=== PATIENT | female | born 1990 | race Caucasian/White ===

== ENCOUNTER 2016-09-10 10:14 | Emergency (ER) | payer OTHER ==
[2016-09-10 10:36] VITALS: BP 106/55; PULSE 83; RESP 16; TEMP 97.6
--- NOTE | 2016-09-10 10:57 | ED ---
General Adult HPI - General Chief complaint: Skin/Abscess/Foreign Body Stated complaint: Needlestick-[facility] Time Seen by Provider: 09/10/16 10:48 Source: patient, RN notes reviewed Mode of arrival: ambulatory Limitations: no limitations - History of Present Illness Initial comments: Patient 26-year-old female who presents emergency room today with a chief complaint of a needlestick. 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 She states it did bleed. She states her tetanus is up-to-date. States hepatitis B physician up-to-date. States she does not believe that the patient has any known history of HIV or hepatitis. Patient does have a sample of blood from the patient. She denies any other complaints or symptoms at this time. Patient denies any recent fever, chills, shortness of breath, chest pain, back pain, abdominal pain, nausea or vomiting, numbness or tingling, dysuria or hematuria, constipation or diarrhea, headaches or visual changes, or any other complaints. - Related Data Home Medications Medication Instructions Recorded Confirmed No Known Home Medications [No 09/10/16 09/10/16 Known Home Medications] Allergies Allergy/AdvReac Type Severity Reaction Status Date / Time No Known Allergies Allergy Verified 09/10/16 10:36 Review of Systems ROS Statement: Those systems with pertinent positive or pertinent negative responses have been documented in the HPI. ROS Other: All systems not noted in ROS Statement are negative. Past Medical History Past Medical History: No Reported History Additional Past Medical History / Comment(s): The patient has had 3 pregnancies and 3 elective abortions History of Any Multi-Drug Resistant Organisms: None Reported Past Surgical History: No Surgical Hx Reported Additional Past Surgical History / Comment(s): Elective 3 Past Anesthesia/Blood Transfusion Reactions: No Reported Reaction Additional Past Anesthesia/Blood Transfusion Reaction / Comment(s): no transfusion hx. Past Psychological History: No Psychological Hx Reported Smoking Status: Never smoker Past Alcohol Use History: None Reported, Occasional Past Drug Use History: None Reported - Past Family History Father Family Medical History: Coronary Artery Disease (CAD) General Exam - General Exam Comments Initial Comments: General: The patient is awake and alert, in no distress, and does not appear acutely ill. Eye: Pupils are equal, round and reactive to light, extra-ocular movements are intact. No nystagmus. There is normal conjunctiva bilaterally. No signs of icterus. Ears, nose, mouth and throat: There are moist mucous membranes and no oral lesions. Neck: The neck is supple. Cardiovascular: There is a regular rate and rhythm. No murmur, rub or gallop is appreciated. Respiratory: Lungs are clear to auscultation, respirations are non-labored, breath sounds are equal. No wheezes, stridor, rales, or rhonchi. Musculoskeletal: Normal ROM, no tenderness. Strength 5/5. Sensation intact. Pulses equal bilaterally 2+. Neurological: A&O x 3. CN II-XII intact, There are no obvious motor or sensory deficits. Coordination appears grossly intact. Speech is normal. Skin: Skin is warm and dry and no rashes or lesions are noted. Psychiatric: Cooperative, appropriate mood & affect, normal judgment. Limitations: no limitations Course Vital Signs 09/10/16 10:33 Temperature 97.6 F Pulse Rate 83 Respiratory 16 Rate Blood Pressure 106/55 O2 Sat by Pulse 99 Oximetry Medical Decision Making - Medical Decision Making Patient's rapid HIV test done on source patient was negative. Results were discussed with patient. Patient advised to follow-up with [facility] for further testing. She states understanding and is in agreement. Disposition Clinical Impression: Needlestick injury accident Disposition: HOME SELF-CARE Condition: Good Instructions: Needle Stick Injuries (ED) Additional Instructions: Please follow-up with employee health for further testing. Please return to emergency room symptoms increase worsen or for any other concerns. Time of Disposition: 12:00
[2016-09-10 12:43] LABS: Hepatitis C Virus IgG Index 0.01
[2016-09-10 12:44] LABS: Hepatitis B Surface Antibody POSITIVE (Negative); Hepatitis C Virus IgG Ab Negative (Negative)
[2016-09-12 03:59] LABS: HIV-1/HIV-2 Ab Screen NONREAC (NON REAC)
== END 2016-09-10 12:08 | disposition home or self-care (01) ==
LOC: EC 10:14
DX: Z77.21 Contact with and (suspected) exposure to potentially hazardous body fluids (principal); W46.1XXA Contact with contaminated hypodermic needle, initial encounter; Y99.0 Civilian activity done for income or pay; Y92.59 Other trade areas as the place of occurrence of the external cause
CPT/HCPCS: 36415; 86701; 86704; 86706; 86803; 87340; 87389; 99283

== ENCOUNTER → 2016-09-25 | Outpatient (CLI) | payer OTHER ==
[2016-09-25 12:07] LABS: CH 31.5; CHCM 32.9; HCT 33.2 % (34.0-46.0); HDW 2.91; HGB 10.7 gm/dL (11.4-16.0); MCH 31.2 pg (25.0-35.0); MCHC 32.3 g/dL (31.0-37.0); MCV 96.5 fL (80.0-100.0); Mean Platelet Volume 8.1; RBC 3.44 m/uL (3.80-5.40); RDW 13.9 % (11.5-15.5); WBC 5.9 k/uL (3.8-10.6)
[2016-09-25 12:09] LABS: Non-African American GFR(MDRD) >60 (>60 ml/min/1.73 sqM)
[2016-09-25 12:41] LABS: Hepatitis B Surface Ag Index 0.07
--- NOTE | 2016-09-25 13:31 | US ---
EXAMINATION TYPE: US OB anatomy transabd DATE OF EXAM: 09/25/2016 1:00 PM COMPARISON: NONE HISTORY: Confirm dates TECHNIQUE: Transabdominal (TA) EXAM MEASUREMENTS: GESTATIONAL AGE / DATING Physician Established: not establsihed Dates by LMP: unknown Dates by First Scan: no prior exam Dates by Current Scan for: (24 weeks/4 days) EDC: 01/11/17 SURVEY IUP: Single PLACENTA: Posterior PREVIA: No previa BOY: 15.8 cm Normal CERVICAL LENGTH (transabdominal: norm > 3.0cm): 4.2 cm BIOMETRY PRESENTATION: Breech LIE: Oblique BPD: 6.0 cm 24 weeks / 4 days HC: 22.8 cm 24 weeks / 6 days AC: 19.8 cm 24 weeks / 4 days FL: 4.3 cm 24 weeks / 1 days ESTIMATED WEIGHT IN GRAMS: 687 grams ESTIMATED WEIGHT IN LBS/OZS: 1 lbs. 8 oz. HC/AC: 1.15 FL/AC: 22% HEART RATE: 134 bpm RHYTHM: Normal ANATOMY SEEN (within normal limits): * Lateral Vent (< 1 cm) 0.8cm * Cisterna Magna (< 1.1 cm) 0.3cm * Nuchal Fold (< 0.6 cm) 0.4cm * Cerebellum (varies with age) 2.2cm Choroid Plexus (bilateral) Midline Falx Cavus Septi Pellucidi Four Chamber Heart Outflow tracts: LVOT/RVOT Stomach Situs Nose / Lips Diaphragm Kidneys (bilateral) Bladder Cord Insert Three Vessel Cord Longitudinal Spine Transverse Spine Arms (bilateral) Legs (bilateral) TECHNOLOGIST IMPRESSION: Single viable IUP 24wks/4 days with NAVEED of 01/11/17 IMPRESSION: Chairez fetus present in a breech presentation with a gestational age of 24 weeks 4 days +/- 2 week s. Estimated date of confinement based on this examination is 01/11/2017.
== END | disposition home or self-care (01) ==
LOC: RADUSWWP 10:15
PROVIDERS: ATTEND Obstetrics & Gynecology
DX: O32.1XX0 Maternal care for breech presentation, not applicable or unspecified (principal); Z3A.24 24 weeks gestation of pregnancy
CPT/HCPCS: 36415; 76811; 82565; 82950; 85027; 86762; 86780; 86850; 86900; 86901; 87340

== ENCOUNTER → 2016-09-30 | Outpatient (CLI) | payer OTHER ==
[2016-09-30 11:41] LABS: Glucose 3 Hour, Gest 91 mg/dL
== END | disposition home or self-care (01) ==
LOC: LABWHC1 07:33
PROVIDERS: ATTEND Obstetrics & Gynecology
DX: O99.810 Abnormal glucose complicating pregnancy (principal); Z3A.00 Weeks of gestation of pregnancy not specified
CPT/HCPCS: 36415; 82951; 82952

== ENCOUNTER → 2016-12-16 | Outpatient (CLI) | payer OTHER ==
--- NOTE | 2016-12-16 11:10 | US ---
EXAMINATION TYPE: US OB anatomy transabd third trimester DATE OF EXAM: 12/16/2016 8:36 AM COMPARISON: US second trimester September 25, 2016. HISTORY: Large for Dates 036.63X0 TECHNIQUE: Transabdominal (TA) EXAM MEASUREMENTS: GESTATIONAL AGE / DATING Physician Established: (35 weeks/1 days) EDC: 01/19/17 Dates by LMP: Unknown Dates by First Scan: (36 weeks/2 days) EDC: 01/11/17 Dates by Current Scan for: (36 weeks/2 days) EDC: 01/19/17 SURVEY IUP: Single PLACENTA: Fundal/posterior PREVIA: No previa BOY: 14.1 cm CERVICAL LENGTH (transabdominal: norm > 3.0cm): 3.0 cm BIOMETRY PRESENTATION: Vertex LIE: Transverse lie with head maternal Left BPD: 8.5 cm 34 weeks / 2 days HC: 33.1 cm 37 weeks / 5 days AC: 32.8 cm 36 weeks / 5 days FL: 7.0 cm 36 weeks / 0 days ESTIMATED WEIGHT IN GRAMS: 2911 grams ESTIMATED WEIGHT IN LBS/OZS: 6 lbs.7 oz. WEIGHT PERCENTAGE BASED ON ESTABLISHED DATE: 80 % HC/AC: 1.0 FL/AC: 21. HEART RATE: 132 bpm RHYTHM: Normal ANATOMY SEEN (within normal limits): Four Chamber Heart Outflow tracts: LVOT/RVOT Stomach Situs Nose / Lips Diaphragm Kidneys (bilateral) Bladder Three Vessel Cord Longitudinal Spine Transverse Spine ANATOMY NOT SEEN: * Lateral Vent (< 1 cm) cm * Cisterna Magna (< 1.1 cm) cm * Nuchal Fold (< 0.6 cm) cm * Cerebellum (varies with age) cm Choroid Plexus (bilateral) Midline Falx Cavus Septi Pellucidi Arms (bilateral) Legs (bilateral) Cord Insert Single live intrauterine gestation is redemonstrated. Normal cephalad presentation to fetus is curren tly seen. There is no ultrasound evidence for placenta previa. Amniotic fluid index is within normal limits. Cervical length is borderline lower limits. biometry measurements are concordant and wi thin normal limits. Detailed anatomical survey is suboptimal due to advanced age. Some structur es are redemonstrated as apparent normal during real-time scanning and still images saved as noted ab ove. Other structures suboptimally evaluated appear within normal limits on second trimester ultrasou nd. IMPRESSION: As above.
== END | disposition home or self-care (01) ==
LOC: RADUSWWP 07:47
PROVIDERS: ATTEND Obstetrics & Gynecology
DX: O36.63X0 Maternal care for excessive fetal growth, third trimester, not applicable or unspecified (principal); Z3A.36 36 weeks gestation of pregnancy
CPT/HCPCS: 76811

== ENCOUNTER 2017-01-01 12:41 | Outpatient (CLI) | payer OTHER ==
[2017-01-01 13:43] VITALS: BP 98/59; PULSE 115; TEMP 98.2
[2017-01-01 13:48] VITALS: RESP 14
--- NOTE | 2017-01-02 06:04 | P.MSEPDOC ---
Presenting Problems - Arrival Data Date of Arrival on Unit: 01/01/17 Time of Arrival on Unit: 12:43 Mode of Transport: Ambulatory - Complaint OB-Reason for Admission/Chief Complaint: Acute Nausea/Vomiting Medical History - Information : 2 Para: 1 Term: 1 : 0 Abortions: Spontaneous or Elective: 0 Number of Living Children: 1 - Gestational Age Expected Date of Delivery: 01/19/17 Gestational Age by NAVEED (wks/days): 37 Weeks and 4 Days Review of Systems - Review of Systems Constitutional: No problems Breast: No problems ENT: No problems Cardiovascular: No problems Respiratory: No problems Gastrointestinal: No problems Genitourinary: No problems Musculoskeletal: No problems Neurological: No problems Skin: No problems Vital Signs - Temperature Temperature: 98.2 F Temperature Source: Oral - Pulse Pulse Oximetery Pulse Rate: 115 Pulse Assessment Method: Pulse Oximetry - Respirations Respiratory Rate: 14 Oxygen Delivery Method: Room Air - Blood Pressure Right Arm Blood Pressure: 98/59 Blood Pressure Mean: 72 Blood Pressure Source: Automatic Cuff Medical Screen Scoring (Pre) - Cervical Exam Dilation: Exam Deferred Effacement: Exam Deferred - Uterine Contractions Frequency: N/A Duration: N/A Intensity: N/A - Maternal Vital Signs Maternal Temperature: N/A Maternal Blood Pressure: N/A Signs of Preeclampsia: N/A Maternal Respirations: N/A - Maternal Trauma Maternal Trauma: N/A - Assessment Baseline FHR: 135 Heart Rate - NICHD Category: Category I (Normal) = 0 NST: Reactive Position: N/A Station: N/A - Total Score Total Score (Pre): 0 - Level of Risk Level of Risk: Low (0-5) Physician Notification (Pre) - Physician Notified Physician Notified Date: 01/01/17 Physician Notified Time: 13:20 Physician/Practitioner Notifed:: dami Spoke With: dami Slater Order Received: Yes - Notification Comment Comment: discharge pt. pt may be seen in ER if she wishes for v/d Physician Notification (Post) - Physician Notified Physician Notified Date: 01/01/17 Physician Notified Time: 13:20 Physician/Practitioner Notified:: dami Spoke With: dami Slater Order Received: Yes - Notification Comment Comment: d/c home. pt may go to ER for further evaluation if she feels the need Disposition - Disposition OB Disposition: Discharge to home Discharge Date: 01/01/17 Discharge Time: 13:22 I agree with the RN Medical Screening Exam: Yes Risk & Benefit of care provided described in d/c instruction: Yes Diagnosis: 37 WEEKS GESTATION OF
== END 2017-01-01 13:22 | disposition home or self-care (01) ==
LOC: FBPOP 12:41
PROVIDERS: ATTEND Obstetrics & Gynecology
DX: O21.2 Late vomiting of pregnancy (principal); Z3A.37 37 weeks gestation of pregnancy
CPT/HCPCS: 59025; G0463; 99213

== ENCOUNTER 2017-01-17 06:02 | Inpatient (IN) | payer OTHER ==
--- NOTE | 2017-01-16 12:52 | P.HPOB ---
History of Present Illness H&P Date: 01/16/17 Chief Complaint: Patient is presenting for a repeat C/S. This patient is a pleasant 26 yr female EDC 01/19/2017 estimated gestational age 39 and 5/7 weeks who presents for elective repeat C/S. care has been uncomplicated with the exception of late to seek care (~ 23wks). Review of Systems Constitutional: Denies chills, Denies fever Ears, nose, mouth and throat: Denies headache, Denies sore throat Cardiovascular: Denies chest pain, Denies shortness of breath Respiratory: Denies cough Gastrointestinal: Reports heartburn Genitourinary: Reports Menstruation: Reports amenorrhea Musculoskeletal: Denies myalgias Past Medical History Past Medical History: No Reported History Additional Past Medical History / Comment(s): The patient has had 3 pregnancies and 3 elective abortions. Previous C/s (girl) History of Any Multi-Drug Resistant Organisms: None Reported Past Surgical History: Section Additional Past Surgical History / Comment(s): Elective 3 Past Anesthesia/Blood Transfusion Reactions: No Reported Reaction Additional Past Anesthesia/Blood Transfusion Reaction / Comment(s): no transfusion hx. Past Psychological History: No Psychological Hx Reported Smoking Status: Never smoker Past Alcohol Use History: None Reported, Occasional Past Drug Use History: None Reported - Past Family History Father Family Medical History: Coronary Artery Disease (CAD) Medications and Allergies Home Medications Medication Instructions Recorded Confirmed Type No Known Home Medications [No 09/10/16 09/10/16 History Known Home Medications] Allergies Allergy/AdvReac Type Severity Reaction Status Date / Time No Known Allergies Allergy Verified 09/10/16 10:36 Exam - OBG Physical Exam Abdomen: bowel sounds normal, no diffuse tenderness, no bruit present, no guarding noted, no hepatomegaly, no splenomegaly, no mass Vulva: both: normal Vagina: normal moisture, no discharge Cervix: Cervix in the office was closed. Uterus: enlarged (Fundal height is 41 cm.) Results labs: A positive, Rubella Immune, YPG-FDP-OpgP neg, Hgb 10.7, glucola was 165 with a normal 3hr GTT. GBS was negative. Ultrasounds have been normal. Assessment and Plan (1) Third trimester Narrative/Plan: This is a pleasant 26 yr female 39 and 5/7 weeks gestation who presents for repeat C/s. I have discussed this surgery and risks with the patient including risks: infection, bleeding, possible injury to bowel/bladder/vessels / and/or other organs. She understands the risks of DVT and PE. All of the patients questions were answered and a written consent was obtained. Status: Acute (2) Previous delivery affecting Status: Acute
[2017-01-17] MEDS ORDERED: CITRIC ACID-SODIUM CITRATE 15 ML CUP PO ONE (06:15)
[2017-01-17] MEDS ORDERED: LACTATED RINGERS 1,000 ML IV ONE (06:15)
[2017-01-17] MEDS ORDERED: LACTATED RINGERS 1,000 ML IV SCH (06:15)
[2017-01-17 06:25] VITALS: BMI 29.1
[2017-01-17 06:27] LABS: Basophils % (A) 0 %; CH 29.3; CHCM 32.4; Eosinophils # (A) 0.1 k/uL (0-0.7); Eosinophils % (A) 1 %; HCT 33.1 % (34.0-46.0); HGB 10.7 gm/dL (11.4-16.0); Hypochromasia Slight; Luc # (Auto) 0.09; Luc % (Auto) 2; Lymphocytes # (A) 2.1 k/uL (1.0-4.8); Lymphocytes % (A) 37 %; MCH 29.4 pg (25.0-35.0); MCHC 32.4 g/dL (31.0-37.0); Mean Platelet Volume 9.1; Monocytes # (A) 0.3 k/uL (0-1.0); Monocytes % (A) 5 %; Neutrophils % (A) 55 %; Poikilocytosis Slight; RBC 3.64 m/uL (3.80-5.40); RDW 14.2 % (11.5-15.5); WBC 5.5 k/uL (3.8-10.6); WBC (Perox) 5.73
[2017-01-17] MEDS ORDERED: ceFAZolin 2 GM in SODIUM CHLORIDE 0.9% 100 ML IVPB ONE (07:16)
[2017-01-17] MEDS ORDERED: ONDANSETRON 4 MG/2 ML VIAL ONE (07:46)
[2017-01-17] MEDS ORDERED: MORPHINE SULFATE (PF) 0.3 MG/0.3 ML SYR ONE (07:46)
[2017-01-17] MEDS ORDERED: NALBUPHINE 10 MG/ML AMPUL ONE (07:46)
[2017-01-17] MEDS ORDERED: KETOROLAC 30 MG/ML 1 ML VIAL ONE (07:46)
[2017-01-17] MEDS ORDERED: OXYTOCIN 10 UNIT/ML 1 ML VIAL ONE (07:46)
--- NOTE | 2017-01-17 08:35 | P.OP ---
Date of Procedure: 01/17/17 Preoperative Diagnosis: #1: 39-5/7 week . #2: Previous section desires repeat Postoperative Diagnosis: Same Procedure(s) Performed: Repeat low transverse section Implants: Anesthesia: spinal Surgeon: Darnell Hidalgo [employer] Supervisor #1: Davide Harvey Estimated Blood Loss (ml): 800 Pathology: other (Placenta) Condition: stable Disposition: floor Indications for Procedure: Please see dictated H&P for intimate details of this patient's admission. Brief summary this is a pleasant 26-year-old 5 para 1 female 39-5/7 weeks gestation who is admitted to labor and delivery for elective repeat section. She does understand the surgery and risks including risks of infection, bleeding, possible injury to bowel, bladder, vessels, and/or other organs. She understands the risk of DVT and pulmonary embolism. All the patient's questions are answered and a written consent is obtained. Operative Findings: This is a vigorous viable male Apgars 8 and 9 delivery time is 0802 hrs. Description of Procedure: This patient has a Serna catheter placed to straight drain. She subsequently taken to the operating room where she sat up and spinal anesthetic is administered without incident. With an adequate level of anesthesia she has abdominal prep and drape. Scalpels then taken the previous Pfannenstiel incision is excised. Second scalpel is taken down the fascia and the fascia scored with a knife. Fascial incision extended bilaterally using the Amaral scissors. Fascia is then dissected off the rectus muscles. Rectus muscles are the peritoneum identified and entered sharply. Peritoneal incision extended superior and inferior without difficulty. Bladder blade is then placed. Bladder peritoneum was then taken sharply off the lower uterine segment. Scalpels and taken and a low transverse uterine incision is then made. Using a hemostat I enter the uterine cavity bluntly and there is loss of a large amount of clear fluid. This incision is then extended bluntly. ' s head is then guided through the incision with fundal pressure delivered. Mouth and nares are bulb suctioned and there is no evidence of a nuchal cord. Then have deliver the anterior posterior shoulder and rest this 's body. This is a vigorous viable male infant Apgars are 8 and 9 delivery time is 0802 hrs. After delivery of the infant, the placenta is manually extracted intact. It appears to be trivascular. The uterus is then externalized and the uterine incision demarcated with Arvizu clamps. Uterine incision closed using 0 Vicryl running locked fashion in 2 layers. Excellent hemostasis is noted. The bladder peritoneum was then closed using a 3-0 Vicryl running fashion. Excess fluid is removed from the abdomen and pelvis. Uterus tubes and ovaries appear normal for term gestation. Uterus placed back into the abdomen. The parietal peritoneum was then closed using 0 Vicryl running fashion. Rectus muscles are reapproximated in 0 Vicryl interrupted fashion. Fascia is then closed using 0 PDS. Fascial incision is intact and hemostatic. Subcutaneous tissues and closed using a 3-0 Vicryl. Skin is and closed using georgi. All counts are correct 3. There are no complications. Infant and mother are taken to the birthing suite in satisfactory condition.
[2017-01-17] MEDS ORDERED: OXYTOCIN 20 UNITS/1000 ML NS 1,000 ML IV SCH (09:15)
[2017-01-17] MEDS ORDERED: diphenhydrAMINE 25 MG CAP PO PRN (09:15)
[2017-01-17] MEDS ORDERED: NALOXONE 0.4 MG/ML 1 ML VIAL IV PRN (09:15)
[2017-01-17] MEDS ORDERED: SIMETHICONE 80 MG CHEWABLE PO PRN (09:15)
[2017-01-17] MEDS ORDERED: ACETAMINOPHEN TAB 325 MG TAB PO PRN (09:15)
[2017-01-17] MEDS ORDERED: ZOLPIDEM 5 MG TAB PO PRN (09:15)
[2017-01-17] MEDS ORDERED: diphenhydrAMINE 50 MG/ML 1 ML VIAL IVP PRN (09:15)
[2017-01-17] MEDS ORDERED: ONDANSETRON 4 MG/2 ML VIAL IVP PRN (09:15)
[2017-01-17] MEDS ORDERED: METOCLOPRAMIDE 5 MG/ML 2 ML VIAL IVP PRN (09:15)
[2017-01-17] MEDS: LACTATED RINGERS 1,000 ML IV SCH ×2 (10:21→20:02)
[2017-01-17] MEDS: SENNOSIDES-DOCUSATE SODIUM 1 EACH TAB PO SCH ×2 (11:34→20:02)
[2017-01-17] MEDS ORDERED: MEASLES-MUMPS-RUBELLA VACC/PF 12,500 UNIT/0.5 ML VIAL SQ ONE (13:52)
[2017-01-17] MEDS: KETOROLAC 30 MG/ML 1 ML VIAL IVP PRN (21:54)
--- NOTE | 2017-01-18 07:28 | P.PNOBGPC ---
Subjective - Subjective Patient reports: Reports appetite normal, Reports voiding normally, Reports pain well controlled, Reports ambulating normally : doing well Objective - Vital Signs Latest vital signs: Vital Signs Temp Pulse Resp BP Pulse Ox 01/18/17 00:00 98.4 F 68 16 113/60 98 01/17/17 20:00 98.5 F 74 16 119/66 99 01/17/17 16:00 98.3 F 73 15 113/73 99 01/17/17 12:00 97.9 F 67 16 127/57 97 01/17/17 10:31 96.0 F L 58 L 14 127/71 99 01/17/17 10:01 96.4 F L 64 16 116/65 99 01/17/17 09:31 96.0 F L 58 L 14 125/61 99 01/17/17 09:16 56 L 16 127/63 98 01/17/17 09:01 96.0 F L 57 L 16 126/56 99 01/17/17 08:46 68 16 125/70 98 01/17/17 08:31 96.2 F L 67 14 106/59 96 Intake and Output 01/17/17 01/18/17 01/18/17 22:59 06:59 14:59 Output Total 1000 450 Balance -1000 -450 Output: Urine 1000 450 Other: # Voids 1 - Exam Lungs: bilateral: normal Chest: Normal S1, Normal S2 Extremities: Present: normal Abdomen: Present: normal appearance, soft. Absent: distention, tenderness Incision: Present: normal, dry, intact Uterus: Present: normal, firm Assessment and Plan (1) Third trimester Narrative/Plan: Post operative day #1. Patient is resting without complaints. Vital signs are stable and she is afebrile. Uterus is firm nontender and her incision is intact and dry. CBC is pending. Patient's tolerating regular diet, and ambulating. Plan today is routine postoperative care. I will check a CBC and allow the patient to shower. Current Visit: No Status: Acute Code(s): Z33.1 - STATE, INCIDENTAL SNOMED Code(s): 92433815 (2) Previous delivery affecting Current Visit: Yes Status: Acute Code(s): O34.219 - MATERNAL CARE FOR UNSP TYPE SCAR FROM PREVIOUS DEL SNOMED Code(s): 465507852
[2017-01-18 07:47] LABS: Basophils % (A) 0 %; CH 29.7; CHCM 33.2; Eosinophils % (A) 1 %; HCT 27.8 % (34.0-46.0); HDW 3.49; HGB 9.3 gm/dL (11.4-16.0); Hypochromasia Slight; Luc % (Auto) 2; Lymphocytes # (A) 1.6 k/uL (1.0-4.8); Lymphocytes % (A) 26 %; MCH 30.1 pg (25.0-35.0); MCHC 33.6 g/dL (31.0-37.0); MCV 89.6 fL (80.0-100.0); Mean Platelet Volume 8.8; Monocytes # (A) 0.2 k/uL (0-1.0); Monocytes % (A) 4 %; Neutrophils # (A) 4.2 k/uL (1.3-7.7); Neutrophils % (A) 68 %; Poikilocytosis Slight; RDW 14.3 % (11.5-15.5); WBC 6.3 k/uL (3.8-10.6); WBC (Perox) 6.72
[2017-01-18] MEDS: SENNOSIDES-DOCUSATE SODIUM 1 EACH TAB PO SCH ×2 (08:56→19:55)
[2017-01-18] MEDS: KETOROLAC 30 MG/ML 1 ML VIAL IVP PRN (09:34)
[2017-01-18] MEDS: Acetaminophen-Codeine 300-30mg TAB PO PRN ×3 (13:03→21:27)
--- NOTE | 2017-01-18 13:55 | P.PN ---
Progress Note - Text Date: 01/18/2017 Time: 1359 The patient is status post section Vital signs stable VAS: 0-10 Patient has no complaints of pain. The patient incurred some minimal itching yesterday, this itching is now subsiding. Pain meds to be managed by service.
[2017-01-18] MEDS: IBUPROFEN 600 MG TAB PO PRN (18:51)
[2017-01-18] MEDS: LACTATED RINGERS 1,000 ML IV SCH (23:16)
[2017-01-18 23:59] VITALS: RESP 16
[2017-01-19] MEDS: IBUPROFEN 600 MG TAB PO PRN ×2 (02:13→08:01)
[2017-01-19] MEDS: Acetaminophen-Codeine 300-30mg TAB PO PRN ×2 (04:49→11:19)
--- NOTE | 2017-01-19 06:01 | P.PNOBGPC ---
Subjective - Subjective Patient reports: Reports appetite normal, Reports voiding normally, Reports pain well controlled, Reports ambulating normally : doing well Objective - Vital Signs Latest vital signs: Vital Signs Temp Pulse Resp BP Pulse Ox 01/18/17 23:52 98.4 F 68 16 116/79 01/18/17 16:00 98.1 F 73 17 111/85 98 01/18/17 08:00 98.6 F 78 16 128/70 96 Intake and Output 01/18/17 01/18/17 01/19/17 14:59 22:59 06:59 Intake Total 250 600 Balance 250 600 Intake: Oral 250 600 Other: # Voids 2 2 - Exam Lungs: bilateral: normal Chest: Normal S1, Normal S2 Extremities: Present: normal Abdomen: Present: normal appearance, soft. Absent: distention, tenderness Incision: Present: normal, dry, intact Uterus: Present: normal, firm - Labs Labs: Abnormal Lab Results - Last 24 Hours (Table) 01/18/17 Range/Units 07:13 RBC 3.10 L (3.80-5.40) m/uL Hgb 9.3 L (11.4-16.0) gm/dL Hct 27.8 L (34.0-46.0) % Plt Count 128 L (150-450) k/uL Assessment and Plan (1) Third trimester Narrative/Plan: Postoperative day #2. Patient is resting without complaints and wishes to go home. Vital signs are stable and she is afebrile. Ears is firm nontender and her incision is intact and dry. CBC yesterday was normal. My impression is a normal postoperative course. Patient's felt be stable for discharge home later today. Current Visit: No Status: Acute Code(s): Z33.1 - STATE, INCIDENTAL SNOMED Code(s): 83138672 (2) Previous delivery affecting Current Visit: Yes Status: Acute Code(s): O34.219 - MATERNAL CARE FOR UNSP TYPE SCAR FROM PREVIOUS DEL SNOMED Code(s): 844402323
--- NOTE | 2017-01-19 06:07 | P.DS ---
Providers Date of admission: 01/17/17 06:02 Expected date of discharge: 01/19/17 Attending physician: Darnell Hidalgo Primary care physician: Stated None - Discharge Diagnosis(es) (1) Third trimester Current Visit: No Status: Acute (2) Previous delivery affecting Current Visit: Yes Status: Acute Hospital Course: Please see dictated H&P for intimate details of this patient's admission. Brief summary this is a pleasant 26-year-old 5 para 1 female 39-5/7 weeks gestation admitted to labor and delivery for elective repeat section. Patient is admitted undergoes above-named surgery. By postoperative # 2 patient's felt to be stable for discharge home follow up with me in 1 week. Procedures: Repeat low transverse section. Patient Condition at Discharge: Good Plan - Discharge Summary New Discharge Prescriptions: Acetaminophen-Codeine 300-30mg [Tylenol w/codeine #3] 1 - 2 each PO Q4HR PRN # 40 tab PRN Reason: Mild Pain Ibuprofen [Motrin] 600 mg PO Q6HR PRN #40 tab PRN Reason: Mild Pain Or Fever >= 100.5 Discharge Medication List Pnv,Calcium 72/Iron/Folic Acid [ Plus Tablet] 1 tab PO DAILY 01/16/17 [ History] Acetaminophen-Codeine 300-30mg [Tylenol w/codeine #3] 1 - 2 each PO Q4HR PRN # 40 tab 01/19/17 [Rx] Ibuprofen [Motrin] 600 mg PO Q6HR PRN #40 tab 01/19/17 [Rx] Follow up Appointment(s)/Referral(s): Darnell Hidalgo MD [STAFF PHYSICIAN] - 01/27/17 1:30 pm (Patient also has a check, March 05 at 10:15 AM.) Patient Instructions/Handouts: (DC) Activity/Diet/Wound Care/Special Instructions: No heavy lifting or strenuous activity. No driving. No intercourse or anything per vagina for 6 weeks. Please call if any fever, chills, excessive vaginal bleeding, and/or abdominal pain. Discharge Disposition: HOME SELF-CARE
[2017-01-19] MEDS: SENNOSIDES-DOCUSATE SODIUM 1 EACH TAB PO SCH (08:01)
[2017-01-19 08:47] VITALS: BP 118/67; PULSE 76; TEMP 97.9
== END 2017-01-19 11:00 | disposition home or self-care (01) | DRG 766 ==
LOC: 4FBP 06:02
PROVIDERS: ADMIT Obstetrics & Gynecology; ATTEND Obstetrics & Gynecology
PROC: 3E0134Z Introduction of Serum, Toxoid and Vaccine into Subcutaneous Tissue, Percutaneous Approach (ICD-10-PCS; 2017-01-17)
PROC: 10D00Z1 Extraction of Products of Conception, Low, Open Approach (ICD-10-PCS; principal; 2017-01-17 08:00)
DX: O34.211 Maternal care for low transverse scar from previous cesarean delivery (principal); Z23 Encounter for immunization; Z37.0 Single live birth; Z3A.39 39 weeks gestation of pregnancy; Z79.899 Other long term (current) drug therapy
CPT/HCPCS: 85025; 86850; 86900; 86901; 88307; 90707

== ENCOUNTER → 2018-10-27 | Outpatient (CLI) | payer OTHER | END | disposition home or self-care (01) | LOC: RADMRIMAIN 09:21 | PROVIDERS: ATTEND Otolaryngology | DX: Z53.9 Procedure and treatment not carried out, unspecified reason (principal) ==

== ENCOUNTER → 2018-12-01 | Outpatient (CLI) | payer OTHER ==
--- NOTE | 2018-12-02 08:25 | US ---
EXAMINATION TYPE: US thyroid st tissue head/neck DATE OF EXAM: 12/01/2018 COMPARISON: NONE CLINICAL HISTORY: R22.1 Localized swelling, mass and lump, neck; patient c/o intermittent palpable in ferior to right earlobe GLAND SIZE: Right Lobe: 4.5 x 1.6 x 1.4 cm Overall Parenchyma: homogenous Left Lobe: 4.8 x 1.7 x 1.1 cm Overall Parenchyma: homogeneous Isthmus Thickness: 0.3 cm NODULES RIGHT: # of nodules measured on right: 0 LEFT: # of nodules measured on left: 0 ISTHMUS: # of nodules measured in the isthmus: 0 Bilateral neck scanned: inferior to right earlobe at palpable a hypoechoic area with appearance of ly mph node is noted = 0.8 x 0.5 x 0.3cm. IMPRESSION: Thyroid gland is unremarkable. At the right-sided palpable abnormality 2 adjacent lymph nodes are see n that are within normal limits of size.
== END | disposition home or self-care (01) ==
LOC: RADUSWWP 16:16
PROVIDERS: ATTEND Otolaryngology
DX: R22.1 Localized swelling, mass and lump, neck (principal)
CPT/HCPCS: 76536

== ENCOUNTER → 2018-12-11 | Outpatient (CLI) | payer OTHER ==
--- NOTE | 2018-12-12 10:19 | MR ---
EXAMINATION TYPE: MR neck wo con DATE OF EXAM: 12/11/2018 COMPARISON: None HISTORY: Right neck mass below rt ear Standard multiplanar, multisequence MRI departmental protocol Multiplanar, multisequence images of the neck were acquired. Diffusion weighted imaging was performed . FINDINGS: Markers placed at the site of clinical concern below the right ear. The site of clinical concern ther e are 2 small lymph nodes measuring 6 x 5 mm and 5 x 5 mm respectively. No intraparotid lesions are s een. Left parotid gland is unremarkable. Submandibular glands are within normal limits. Supraglottic, glottic and subglottic portions of the airway are unremarkable. Thyroid lobes are homogeneous and free of lesion. Subcentimeter lymph nodes are seen within the internal jugular chains bilaterally. Cervical spine is unremarkable as are the lung apices. Mastoid air cells are well-aerated. Mild mucos al thickening of the left maxillary sinus. IMPRESSION: 2 small lymph nodes are seen adjacent to the right parotid gland at the site of clinical concern. No additional lesions seen.
== END | disposition home or self-care (01) ==
LOC: RADMRIMAIN 15:59
PROVIDERS: ATTEND Otolaryngology
DX: R22.1 Localized swelling, mass and lump, neck (principal)
CPT/HCPCS: 70540

== ENCOUNTER → 2019-01-15 | Outpatient (CLI) | payer OTHER ==
--- NOTE | 2019-01-15 13:58 | US ---
EXAMINATION TYPE: US OB anatomy transabd DATE OF EXAM: 01/15/2019 COMPARISON: NONE HISTORY: Large for dates O36.62 LGA, 3, para 2 TECHNIQUE: Transabdominal (TA) EXAM MEASUREMENTS: GESTATIONAL AGE / DATING Physician Established: (22 weeks/4 days) EDC: 05/17/2019 Dates by LMP: Unknown Dates by First Scan: No scan here Dates by Current Scan for: (22 weeks/6 days) EDC: 05/15/2019 SURVEY IUP: Single PLACENTA: Anterior PREVIA: No previa BOY: 16.9 cm Normal CERVICAL LENGTH (transabdominal: norm > 3.0cm): 3.3 cm BIOMETRY PRESENTATION: Vertex LIE: Longitudinal BPD: 5.5 cm 22 weeks / 6 days HC: 20.4 cm 22 weeks / 4 days AC: 18.1 cm 23 weeks / 0 days FL: 4.0 cm 23 weeks / 0 days ESTIMATED WEIGHT IN GRAMS: 543 grams ESTIMATED WEIGHT IN LBS/OZ: 1 lbs. 3 oz. WEIGHT PERCENTAGE BASED ON ESTABLISHED DATE: 59 % HC/AC: 1.13 Normal FL/AC: 22% Normal HEART RATE: 150 bpm RHYTHM: Normal ANATOMY SEEN (within normal limits): * Lateral Vent (< 1 cm) 0.8 cm * Cisterna Magna (< 1.1 cm) 0.6 cm * Nuchal Fold (< 0.6 cm) 0.3 cm * Cerebellum (varies with age) 2.2 cm Choroid Plexus (bilateral) Midline Falx Cavus Septi Pellucidi Four Chamber Heart Outflow tracts: LVOT/RVOT Stomach Situs Nose / Lips Diaphragm Kidneys (bilateral) Bladder Cord Insert Three Vessel Cord Longitudinal Spine Transverse Spine Arms (bilateral) Legs (bilateral) Viable single IUP measuring 22 weeks 6 days with a heart rate of 150bpm and an estimated delivery murray e of 05/15/2019. IMPRESSION: Single intrauterine gestation estimated at 20 weeks 6 days gestation. Cardiac activity measures 150 b pm.
== END | disposition home or self-care (01) ==
LOC: RADUSWWP 12:28
PROVIDERS: ATTEND Obstetrics & Gynecology
DX: O36.62X0 Maternal care for excessive fetal growth, second trimester, not applicable or unspecified (principal); Z3A.22 22 weeks gestation of pregnancy
CPT/HCPCS: 76811

== ENCOUNTER 2021-03-13 11:13 | Emergency (ER) | payer OTHER ==
--- NOTE | 2021-03-13 12:14 | ED ---
Extremity Problem HPI - General Source: patient Mode of arrival: wheelchair Limitations: no limitations <Lesly Pa - Last Filed: 03/13/21 12:59> <Mikayla Damon - Last Filed: 03/15/21 01:18> - General Chief complaint: Extremity Problem,Nontraumatic Stated complaint: Left Ankle Injury Time Seen by Provider: 03/13/21 11:26 - History of Present Illness Initial comments: Patient is a 30-year-old female presenting to the emergency Department with complaints of left ankle pain after she twisted and fell today just prior to arrival. She states she was walking on grass and stepped into a hole and her left ankle twisted. She is having pain in the lateral aspect of the left ankle and some shooting pain up the left lower leg. She denies any other injuries from this fall, she did not hit her head. She did take some Tylenol prior to arrival and is helping with her pain. She has no further complaints. (Lesly Pa) - Related Data Home Medications Medication Instructions Recorded Confirmed Pnv,Calcium 72/Iron/Folic Acid 1 tab PO DAILY 01/16/17 01/16/17 [ Plus Tablet] Previous Rx's Medication Instructions Recorded Acetaminophen-Codeine 300-30mg 1 - 2 each PO Q4HR PRN #40 tab 01/19/17 [Tylenol w/codeine #3] Ibuprofen [Motrin] 600 mg PO Q6HR PRN #40 tab 01/19/17 Allergies Allergy/AdvReac Type Severity Reaction Status Date / Time No Known Allergies Allergy Verified 03/13/21 11:21 Review of Systems ROS Other: All systems not noted in ROS Statement are negative. <Lesly Pa - Last Filed: 03/13/21 12:59> ROS Other: All systems not noted in ROS Statement are negative. <Mikayla Damon - Last Filed: 03/15/21 01:18> ROS Statement: Those systems with pertinent positive or pertinent negative responses have been documented in the HPI. Past Medical History Past Medical History: No Reported History Additional Past Medical History / Comment(s): The patient has had 3 pregnancies and 3 elective abortions History of Any Multi-Drug Resistant Organisms: None Reported Past Surgical History: No Surgical Hx Reported Additional Past Surgical History / Comment(s): Elective 3 Past Anesthesia/Blood Transfusion Reactions: No Reported Reaction Additional Past Anesthesia/Blood Transfusion Reaction / Comment(s): no transfusion hx. Past Psychological History: No Psychological Hx Reported Smoking Status: Never smoker Past Alcohol Use History: None Reported, Occasional - Past Family History Father Family Medical History: Coronary Artery Disease (CAD) <Lesly Pa - Last Filed: 03/13/21 12:59> General Exam Limitations: no limitations <EmberLesly Presley - Last Filed: 03/13/21 12:59> - General Exam Comments Initial Comments: GENERAL: Patient is well-developed and well-nourished. Patient is nontoxic and in no acute distress. HEAD: Atraumatic, normocephalic. EYES: Pupils equal round and reactive to light, extraocular movements intact, sclera anicteric, conjunctiva are normal. Eyelids were unremarkable. LUNGS: Unlabored respirations. Breath sounds clear to auscultation bilaterally and equal. No wheezes rales or rhonchi. HEART: Regular rate and rhythm without murmurs, rubs or gallops. MUSCULOSKELETAL: Patient has pain to palpation of the left lateral malleolus, she gets mild swelling present, she is neurovascular intact. She does have pain with active range of motion of left ankle, no pain of the left foot or left knee. No clubbing or cyanosis. SKIN: Warm, Dry, normal turgor, no rashes or lesions noted. (Lesly Pa) Course Vital Signs 03/13/21 03/13/21 11:18 13:10 Temperature 98.3 F 98.4 F Pulse Rate 69 91 Respiratory 16 18 Rate Blood Pressure 137/76 116/68 O2 Sat by Pulse 100 97 Oximetry Procedures - Orthopedic Splinting/Casting Injury #1 Side: left Lower Extremity Injury Location: ankle Lower Extremity Immobilizer: AirCast <Lesly Pa - Last Filed: 03/13/21 12:59> Medical Decision Making <Lesly Pa - Last Filed: 03/13/21 12:59> <Mikayla Damon - Last Filed: 03/15/21 01:18> - Medical Decision Making Patient is a 30-year-old female here with left ankle pain after she stepped in a hole and twisted just prior to arrival. She did take some Tylenol prior to arrival which is helping. X-rays reveal no acute fractures dislocations. I discussed the patient was most likely a mild to moderate ankle sprain. I did recommend Aircast which I did give her and placed on. She will do ice, elevation, compression. She continue with ibuprofen or Tylenol for discomfort. If symptoms persist she can follow up with her primary care physician. She is agreeable with this plan of care. Case discussed with Dr. Damon. (Lesly Pa) I was available for consultation in the emergency department. The history and physical exam were done by the midlevel provider. I was consulted for this patients care. I reviewed the case with the midlevel provider and based on their presentation of the patient, I agree with the assessment, medical decision making and plan of care as documented. Chart was dictated using [employer] dictation software. Attempts were made to correct any dictation errors however some typographical errors may persist. ( Mikayla Damon) Disposition Is patient prescribed a controlled substance at d/c from ED?: No Time of Disposition: 13:01 <Lesly Pa - Last Filed: 03/13/21 12:59> <Mikayla Damon - Last Filed: 03/15/21 01:18> Clinical Impression: Left ankle sprain Disposition: HOME SELF-CARE Condition: Stable Instructions (If sedation given, give patient instructions): Ankle Sprain (ED) Additional Instructions: Please return to the Emergency Department if symptoms worsen or any other concerns. Please wear air cast for support, elevate above heart level, apply ice to the area. Follow-up with your primary care physician if symptoms persist without improvement after 1-2 weeks. Referrals: None,Stated [Primary Care Provider] - 1-2 days
--- NOTE | 2021-03-13 12:52 | XR ---
Left ankle HISTORY: Trauma and pain 3 views of the left ankle, no comparisons There is soft tissue swelling. Bone mineralization, joint spaces and alignment are maintained. IMPRESSION: No acute fracture or dislocation. Soft tissue swelling.
[2021-03-13 13:15] VITALS: BP 116/68; PULSE 91; RESP 18; TEMP 98.4
== END 2021-03-13 13:10 | disposition home or self-care (01) ==
LOC: EC 11:13
DX: S93.402A Sprain of unspecified ligament of left ankle, initial encounter (principal); X50.1XXA Overexertion from prolonged static or awkward postures, initial encounter; Y93.01 Activity, walking, marching and hiking
CPT/HCPCS: 73610; 99283; L4350

== ENCOUNTER → 2022-03-26 | Outpatient (CLI) | payer OTHER ==
[2022-03-26 10:31] LABS: HCT 38.3 % (37.2-46.3); HGB 12.1 g/dL (12.0-15.0); MCH 29.5 pg (27.0-32.0); MCHC 31.6 g/dL (32.0-37.0); MCV 93.4 fL (80.0-97.0); Mean Platelet Volume 11.9 fL (9.5-12.2); NRBC Per 100 WBC 0 /100 WBCS (0.0-0.0); Platelet Count 230 X 10*3/uL (140-440); RDW 13.4 % (11.5-14.5); WBC 4.12 X 10*3/uL (4.50-10.00)
[2022-03-26 10:51] LABS: % Iron Saturation 17.01 (12.00-45.00); Ferritin 23.9 ng/mL (10.0-291.0)
== END | disposition home or self-care (01) ==
LOC: LABWHC1 07:20
PROVIDERS: ATTEND Obstetrics & Gynecology
DX: Z13.1 Encounter for screening for diabetes mellitus (principal); Z13.0 Encounter for screening for diseases of the blood and blood-forming organs and certain disorders involving the immune mechanism; D64.9 Anemia, unspecified; R53.81 Other malaise; R53.83 Other fatigue; R73.01 Impaired fasting glucose
CPT/HCPCS: 36415; 82728; 83036; 83540; 83550; 85027

== ENCOUNTER → 2024-05-28 | Outpatient (CLI) | payer OTHER ==
--- NOTE | 2024-05-31 18:56 | MM ---
Reason for Exam: Screening (asymptomatic). Baseline mammogram. Patient History: Menarche at age 13. First Full-Term at age 26. Maternal grandmother had ovarian cancer. Last menstrual period: 05/28/2024 Prior Study Comparison: Patient's first Mammogram. No prior studies available for comparison. Tissue Density: The breasts are heterogeneously dense, which may obscure small masses. Findings: Analyzed By CAD. There are bilateral areas of asymmetric density which may represent superimposition shadow but for which further evaluation is recommended. No suspicious microcalcification or other discrete abnormality is seen. Overall Assessment: Incomplete: need additional imaging evaluation, BI-RAD 0 Management: Special View Mammogram of both breasts. . [facility] will attempt to contact patient to return for supplemental views and ultrasound if indicated. [facility], , 05/31/2024 6:53 PM. Electronically signed and approved by: Cordell Singh M.D. Radiologist
== END | disposition home or self-care (01) ==
LOC: RADMAMWWP 13:01
PROVIDERS: ATTEND Internal Medicine
DX: Z80.3 Family history of malignant neoplasm of breast
CPT/HCPCS: 77067

== ENCOUNTER → 2024-06-04 | Outpatient (CLI) | payer OTHER ==
--- NOTE | 2024-06-04 14:28 | MM ---
Reason for Exam: Additional evaluation requested from abnormal screening. Last screening mammogram was performed less than 1 month ago. Patient History: Menarche at age 13. First Full-Term at age 26. Maternal grandmother had ovarian cancer. Prior Study Comparison: 05/28/2024 Bilateral MG screening mammo w CAD, [facility]. Tissue Density: The breasts are heterogeneously dense, which may obscure small masses. Findings: Analyzed By CAD. There is a persistent mass or distortion. Precautionary six-month follow-up is recommended. Overall Assessment: Probably benign, BI-RAD 3 Management: Diagnostic Mammogram of both breasts in 6 months. . Results were given to the patient verbally at the time of exam. Patient should continue monthly self-breast exams. A clinical breast exam by your physician is recommended on an annual basis. This exam should not preclude additional follow-up of suspicious palpable abnormalities. Note on Marylou scores and lifetime risk: 1. A Marylou score greater than 3% is considered moderate risk. If this is the case, consider specialist referral to assess eligibility for a risk reducing agent. 2. If overall lifetime risk for the development of breast cancer is 20% or higher, the patient may qualify for future screening with alternating mammogram and breast MRI. [facility], , 06/04/2024 2:25 PM. Electronically signed and approved by: Jonnie De Leon M.D. Radiologis
== END | disposition home or self-care (01) ==
LOC: RADMAMWWP 14:00
PROVIDERS: ATTEND Internal Medicine
CPT/HCPCS: 77062; 77066

== ENCOUNTER → 2024-12-20 | Outpatient (CLI) | payer OTHER ==
--- NOTE | 2024-12-20 09:18 | MM ---
Reason for Exam: Additional evaluation requested from abnormal screening. Last screening mammogram was performed 6 month(s) ago. Patient History: Menarche at age 13. First Full-Term at age 26. Patient has history of breast feeding. Patient used Hormonal Contraceptives for 9 years. Maternal grandmother had ovarian cancer. Last menstrual period: 12/08/2023 Prior Study Comparison: 05/28/2024 Bilateral MG screening mammo w CAD, [facility]. 06/04/2024 Bilateral MG 3D work up w/cad LACIE, [facility]. Tissue Density: The breasts are heterogeneously dense, which may obscure small masses. Findings: Analyzed By CAD. No suspicious new mass or increasing distortion in either breast. No suspicious new group of microcalcifications bilaterally. Overall Assessment: Negative, BI-RAD 1 Management: Screening Mammogram of both breasts at age 41. . Results were given to the patient verbally at the time of exam. Patient should continue monthly self-breast exams. A clinical breast exam by your physician is recommended on an annual basis. This exam should not preclude additional follow-up of suspicious palpable abnormalities. Note on Marylou scores and lifetime risk: 1. A Marylou score greater than 3% is considered moderate risk. If this is the case, consider specialist referral to assess eligibility for a risk reducing agent. 2. If overall lifetime risk for the development of breast cancer is 20% or higher, the patient may qualify for future screening with alternating mammogram and breast MRI. [facility], , 12/20/2024 9:14 AM. Electronically signed and approved by: Ambrocio Galicia M.D.
== END | disposition home or self-care (01) ==
LOC: RADMAMWWP 08:38
PROVIDERS: ATTEND Internal Medicine
DX: R92.8 Other abnormal and inconclusive findings on diagnostic imaging of breast (principal); R92.333 Mammographic heterogeneous density, bilateral breasts; Z92.0 Personal history of contraception
CPT/HCPCS: 77066; G0279; 77062